=== PATIENT | male | born 2000 | race African-American/Black ===

== ENCOUNTER 2022-02-06 09:59 | Emergency (ER) | payer SELFPAY ==
[2022-02-06] MEDS ORDERED: Boostrix 0.5 ML (Tdap) VIAL ONE (10:15)
[2022-02-06] MEDS ORDERED: Bacitracin 1 PK ONE (10:52)
[2022-02-06] MEDS ORDERED: Lidocaine 1% (PF) 30 ML VIAL ONE (10:52)
== END 2022-02-06 12:30 | disposition home or self-care (01) ==
LOC: CSHERS 09:59
DX: S01.81XA Laceration without foreign body of other part of head, initial encounter (principal); Z23 Encounter for immunization; X58.XXXA Exposure to other specified factors, initial encounter
CPT/HCPCS: 12011; 90471; 90715; J2001